=== PATIENT | male | born 1980 | race African-American/Black ===

== ENCOUNTER 2024-11-26 22:20 | Inpatient (IN) | payer OTHER ==
[~2024-11-26 22:20] MED LIST: Iopamidol-370 76% 500 ML MDV (1 ML CHARGE) ONE
[2024-11-26 23:00] LABS: #Basophils 0.03 10x3/uL (0.0-0.2); #Eosinophils 0.14 10x3/uL (0.0-0.7); #Monocytes 0.73 10x3/uL (0.11-0.59); #Neutrophils 2.95 10x3/uL (1.40-6.50); %Basophils 0.4 % (0.0-1.0); %Eosinophils 2.1 % (0.0-10.0); %Lymphocytes 42.5 % (21.0-51.0); %Monocytes 10.9 % (0.0-10.0); %Neutrophils 44.0 % (42.0-75.0); Hematocrit 40.2 % (42.0-52.0); Hemoglobin 13.7 g/dL (14.0-18.0); Mean Corpuscular Hemoglobin 30.7 pg (27.0-31.0); Mean Corpuscular Volume 90.1 fL (78.0-98.0); Platelet Count 199 10x3/uL (130-400); Red Blood Cell (RBC) Count 4.46 mill/uL (4.70-6.10); White Blood Cell (WBC) Count 6.71 10x3/uL (4.8-10.8)
[2024-11-26 23:32] LABS: ALT (SGPT) 15 U/L (Less than 45); AST (SGOT) 21 U/L (11-34); Albumin 4.0 g/dL (3.1-4.5); Alkaline Phosphatase 79 U/L (40-110); Anion Gap 11 mmol/L (10-20); BUN (Urea Nitrogen) 15 mg/dL (8.9-20.6); Bilirubin, Total 0.3 mg/dL (0.3-1.2); Calc. Creatinine Clearance 0 mL/min (70-130); Calcium 8.6 mg/dL (7.8-10.44); Carbon Dioxide 23 mmol/L (22-29); Chloride 110 mmol/L (98-107); Globulin 3.0 g/dL (2.4-3.5); Glucose 89 mg/dL (70-105); Lipase 38 U/L (8-78); Magnesium 1.9 mg/dL (1.6-2.6); Potassium 3.7 mmol/L (3.5-5.1); Sodium 140 mmol/L (136-145)
[2024-11-26] MEDS ORDERED: Furosemide 40 MG (4 mL) VIAL ONE (23:32)
[2024-11-27] MEDS ORDERED: Ondansetron PF 4 MG/2 ML Vial IVP PRN (03:33)
[2024-11-27] MEDS ORDERED: Calcium Carbonate 500 MG ChewTAB PO PRN (03:33)
[2024-11-27] MEDS ORDERED: Senokot S 8.6-50 MG TAB PO PRN (03:33)
[2024-11-27] MEDS ORDERED: Electrolyte Replacement Protocol 1 EACH FS PRN (03:45)
[2024-11-27] MEDS: Aspirin Chewable 81 MG TAB PO SCH ×2 (06:12→06:18)
[2024-11-27] MEDS: Furosemide 40 MG (4 mL) VIAL SLOW IVP SCH (06:12)
[2024-11-27] MEDS: Acetaminophen 325 MG TAB PO PRN (06:40)
[2024-11-27] MEDS: Magnesium 2 GM/50 ML(in water) 2 GM in Premix 1 BAG IVPB SCH (08:56)
[2024-11-27] MEDS: Phenytoin 100 MG (4 mL) UDCUP PO SCH (08:56)
[2024-11-27] MEDS: PNEUMOC 20-VAL CONJ-DIP CRM/PF 0.5 ML SYRINGE IM ONE (08:56)
[2024-11-27] MEDS: Enoxaparin 40 MG (0.4 mL) SYRINGE SC SCH (08:56)
[2024-11-27] MEDS: Nitroglycerin 2% Ointment 1 INCH/1 GM Packet TOP SCH (08:56)
[2024-11-27] MEDS: Cyclobenzaprine 10 MG TAB PO SCH (11:31)
[2024-11-27] MEDS: predniSONE 20 MG TAB PO SCH (11:31)
[2024-11-27] MEDS ORDERED: Albuterol 200 PUFF INH INH PRN (13:00)
[2024-11-27] MEDS: Mometasone 100 MCG HFA INHALER (RT USE) INH SCH (19:12)
[2024-11-27] MEDS: HYDROcodone/Acetaminophen 5/325 mg Tablet PO PRN (20:00)
[2024-11-27] MEDS: risperiDONE 1 MG TAB PO SCH (20:01)
[2024-11-27] MEDS: Carvedilol 3.125 MG TAB PO SCH (20:01)
[2024-11-27] MEDS: Phenytoin Extended Release 100 MG CAP PO SCH (20:01)
[2024-11-27] MEDS ORDERED: Phenytoin 100 MG (4 mL) UDCUP PO SCH (21:00)
[2024-11-28 04:04] LABS: #Basophils Less than 0.03 10x3/uL (0.0-0.2); #Eosinophils Less than 0.03 10x3/uL (0.0-0.7); #Monocytes 0.62 10x3/uL (0.11-0.59); #Neutrophils 5.27 10x3/uL (1.40-6.50); %Basophils 0.2 % (0.0-1.0); %Eosinophils 0.1 % (0.0-10.0); %Lymphocytes 27.8 % (21.0-51.0); %Monocytes 7.6 % (0.0-10.0); %Neutrophils 64.2 % (42.0-75.0); Hematocrit 42.6 % (42.0-52.0); Hemoglobin 14.6 g/dL (14.0-18.0); Mean Corpuscular Hemoglobin 30.7 pg (27.0-31.0); Mean Corpuscular Volume 89.5 fL (78.0-98.0); Platelet Count 203 10x3/uL (130-400); Red Blood Cell (RBC) Count 4.76 mill/uL (4.70-6.10); White Blood Cell (WBC) Count 8.21 10x3/uL (4.8-10.8)
[2024-11-28 04:31] LABS: ALT (SGPT) 15 U/L (Less than 45); AST (SGOT) 16 U/L (11-34); Albumin 4.2 g/dL (3.1-4.5); Alkaline Phosphatase 74 U/L (40-110); Anion Gap 15 mmol/L (10-20); BUN (Urea Nitrogen) 15 mg/dL (8.9-20.6); Bilirubin, Total 0.4 mg/dL (0.3-1.2); Calc. Creatinine Clearance 121 mL/min (70-130); Calcium 9.0 mg/dL (7.8-10.44); Carbon Dioxide 25 mmol/L (22-29); Cardiac Risk 2.3 (Less than 4.5); Chloride 102 mmol/L (98-107); Cholesterol 137 mg/dl (< 200 Desired); Globulin 3.4 g/dL (2.4-3.5); Glucose 112 mg/dL (70-105); HDL Cholesterol 60 mg/dL (>60 Neg Risk); LDL Cholesterol, Calculated 69 mg/dL; Potassium 4.1 mmol/L (3.5-5.1); Sodium 138 mmol/L (136-145); Triglycerides 40 mg/dL (Less than 150)
[2024-11-28] MEDS: predniSONE 20 MG TAB PO SCH (09:43)
[2024-11-28] MEDS: Lisinopril 20 MG TAB PO SCH (09:44)
[2024-11-28] MEDS: Aspirin 81 mg Enteric Coated Tablet PO SCH (09:44)
[2024-11-28] MEDS: Spironolactone 25 MG TAB PO SCH (09:45)
[2024-11-28] MEDS: Cyclobenzaprine 10 MG TAB PO PRN (14:50)
[2024-11-29 04:51] VITALS: TEMP 97.9
[2024-11-29 05:24] VITALS: BMI 36.2
[2024-11-29 11:25] VITALS: BP 131/82
== END 2024-11-29 15:11 | DRG 313 ==
LOC: ERS 22:20 → EEVIPCON 22:20 → 2NO 11-27 03:07 → OBSVTOIN 11-27 10:51
PROVIDERS: ADMIT Internal Medicine; ATTEND Internal Medicine
DX: R07.89 Other chest pain (principal); I50.33 Acute on chronic diastolic (congestive) heart failure; I11.0 Hypertensive heart disease with heart failure; I25.10 Atherosclerotic heart disease of native coronary artery without angina pectoris; E66.9 Obesity, unspecified; E78.00 Pure hypercholesterolemia, unspecified; J45.909 Unspecified asthma, uncomplicated; Z68.34 Body mass index [BMI] 34.0-34.9, adult; E78.5 Hyperlipidemia, unspecified; Z79.899 Other long term (current) drug therapy; Z79.82 Long term (current) use of aspirin; Z79.51 Long term (current) use of inhaled steroids
CPT/HCPCS: 36415; 36416; 71045; 71275; 74174; 78452; 80053; 80061; 83036; 83690; 83735; 83880; 84484; 85025; 93005; 93010; 93017; 93306; 93798; 94664; 94760; 96372; 96374; 96375; 96376; A9502; G0378; J1650; J1940; J2270; J2785; J3010; J3475; J7512; Q9967